=== PATIENT | male | born 1960 | race Caucasian/White ===

== ENCOUNTER 2021-03-22 02:02 | Inpatient (IN) ==
[2021-03-22] MEDS ORDERED: Naloxone 0.4 MG/ML INJ IVP PRN ×2 (06:31→15:37)
[2021-03-22] MEDS ORDERED: Ondansetron 4 MG/2 ML VIAL IVP PRN ×2 (06:31→15:37)
[2021-03-22] MEDS ORDERED: *HR* LORazepam 2 MG/ML VIAL IVP PRN ×4 (06:35→15:37)
[2021-03-22] MEDS ORDERED: 0.9 % Sodium Chloride 1,000 ML IVC SCH (06:45)
[2021-03-22 07:12] LABS: Basophils % 0.1 %; Eosinophils % 0.1 %; Hematocrit 30.2 % (37.5-50.1); Hemoglobin 10.2 g/dL (12.9-16.9); Immature Granulocytes % 0.4 % (0-4); Lymphocytes # 1.3 K/mcL (0.6-4.6); Lymphocytes % 16.4 %; Mean Corpuscular HGB Conc 33.8 g/dL (31.6-35.5); Mean Corpuscular Hemoglobin 32.5 pg (28.0-33.3); Mean Corpuscular Volume 96.2 fL (83.0-100.0); Mean Platelet Volume 9.1 fL (9.4-12.4); Monocytes # 0.7 K/mcL (0.0-1.3); Monocytes % 8.4 %; Neutrophils # 5.9 K/mcL (1.6-8.9); Platelet Count 190 K/mcL (140-400); Red Blood Count 3.14 M/mcL (4.19-5.50); Red Cell Distribution Width 13.2 % (11.5-14.5); Segmented Neutrophils % 74.6 %; White Blood Count 7.9 K/mcL (4.3-11.1)
[2021-03-22 07:19] LABS: INR 1.1; Prothrombin Time 12.7 Seconds (9.4-12.1)
[2021-03-22 07:39] LABS: BUN/Creatinine Ratio 23 (6-26); Blood Urea Nitrogen 12 mg/dL (8-23); Calcium 7.7 mg/dL (8.6-10.3); Carbon Dioxide 21 mEq/L (23-29); Chloride 103 mEq/L (98-107); Ethanol 144 mg/dL (Less than 10); Glucose 96 mg/dL (70-105); Magnesium 1.6 mg/dL (1.6-2.6); Osmolality,Calculated 272 (280-300); Potassium 3.8 mEq/L (3.5-5.1); Sodium 131 mEq/L (136-145); eGFR For African Americans > 60 (> 60); eGFR For Non-African Americans > 60 (> 60)
[2021-03-22 10:01] LABS: Thyroid Stimulating Hormone 1.168 mcIU/mL (0.340-5.600)
[2021-03-22 10:28] LABS: Bilirubin,Urine Negative (Negative); Blood,Urine Negative (Negative); Clarity,Urine Clear (Clear); Color,Urine Light-Yellow (Yellow); Glucose,Urine (UA) Normal (Normal); Ketones,Urine Negative (Negative); Leukocyte Esterase,Urine Negative (Negative); Nitrite,Urine Negative (Negative); Protein,Urine Negative (Neg-Trace); Specific Gravity,Urine 1.008 (1.010-1.025); Urobilinogen,Urine Normal (Normal)
[2021-03-22] MEDS ORDERED: *HR* Midazolam HCl 2 MG/2 ML VIAL ONE (10:42)
[2021-03-22] MEDS ORDERED: *HR* Propofol 200 MG/20 ML VIAL IVP ONE (10:43)
[2021-03-22] MEDS ORDERED: Lidocaine -MPF 2% 5 ML VIAL ONE (10:43)
[2021-03-22] MEDS ORDERED: *HR* HYDROmorphone PF 0.5 MG/0.5 ML SYRINGE IVP PRN (10:45)
[2021-03-22] MEDS ORDERED: *HR* FentaNYL (PF) 100 MCG/2 ML VIAL IVP PRN (10:45)
[2021-03-22] MEDS ORDERED: Dexmedetomidine HCl 400 MCG/100 ML MLS IVC ONE (12:27)
[2021-03-22] MEDS ORDERED: Ipratropium/Albuterol Neb 3 ML IH ONE (12:34)
[2021-03-22] MEDS ORDERED: *HR* OxyCODONE Immed Rel 5 MG TABLET PO ONE (12:34)
[2021-03-22] MEDS ORDERED: TOTAL JOINT MIXTURE (100ML) INTRAART ONE (13:00)
[2021-03-22] MEDS ORDERED: Tranexamic Acid 1,000 MG/10 ML VIAL ONE (13:23)
[2021-03-22] MEDS ORDERED: *HR* HYDROMORPHONE 2 MG/ML VIAL ONE (13:25)
[2021-03-22] MEDS: 0.9 % Sodium Chloride 1,000 ML IVC SCH (16:08)
[2021-03-22] MEDS: carvediloL 6.25 MG TABLET PO SCH (17:08)
[2021-03-22] MEDS: Thiamine (B-1) 100 MG, Folic Acid 1 MG, MVI, adult with vitamin K 10 ML in 0.9 % Sodi... IVPB SCH (17:25)
[2021-03-22] MEDS ORDERED: Thiamine (B-1) 100 MG, Folic Acid 1 MG, MVI, adult with vitamin K 10 ML in 0.9 % Sodi... IVPB SCH (18:00)
[2021-03-22] MEDS: traZODone 50 MG TABLET PO PRN (20:25)
[2021-03-22] MEDS: CeFAZolin 2 GM/120 ML BAG IVPB SCH (22:09)
[2021-03-23] MEDS: 0.9 % Sodium Chloride 1,000 ML IVC SCH (03:08)
[2021-03-23] MEDS: CeFAZolin 2 GM/120 ML BAG IVPB SCH (04:22)
[2021-03-23 05:16] LABS: Basophils % 0.1 %; Hematocrit 21.6 % (37.5-50.1); Immature Granulocytes % 0.3 % (0-4); Lymphocytes # 1.3 K/mcL (0.6-4.6); Mean Corpuscular HGB Conc 33.8 g/dL (31.6-35.5); Mean Corpuscular Hemoglobin 34.1 pg (28.0-33.3); Mean Corpuscular Volume 100.9 fL (83.0-100.0); Mean Platelet Volume 9.4 fL (9.4-12.4); Monocytes # 0.8 K/mcL (0.0-1.3); Monocytes % 7.7 %; Neutrophils # 8.6 K/mcL (1.6-8.9); Platelet Count 134 K/mcL (140-400); Red Blood Count 2.14 M/mcL (4.19-5.50); Red Cell Distribution Width 13.4 % (11.5-14.5); Segmented Neutrophils % 79.9 %; White Blood Count 10.8 K/mcL (4.3-11.1)
[2021-03-23 05:17] LABS: Hemoglobin 7.3 g/dL (12.9-16.9)
[2021-03-23 05:31] LABS: BUN/Creatinine Ratio 20 (6-26); Blood Urea Nitrogen 11 mg/dL (8-23); Calcium 7.7 mg/dL (8.6-10.3); Carbon Dioxide 21 mEq/L (23-29); Chloride 104 mEq/L (98-107); Glucose 113 mg/dL (70-105); Osmolality,Calculated 266 (280-300); Potassium 3.6 mEq/L (3.5-5.1); Sodium 128 mEq/L (136-145); eGFR For African Americans > 60 (> 60); eGFR For Non-African Americans > 60 (> 60)
[2021-03-23] MEDS: *HR* OxyCODONE Immed Rel 5 MG TABLET PO PRN ×2 (10:02→17:35)
[2021-03-23] MEDS: carvediloL 6.25 MG TABLET PO SCH ×2 (10:03→17:36)
[2021-03-23] MEDS: amLODIPine 5 MG TABLET PO SCH (10:04)
[2021-03-23 10:40] LABS: Hematocrit 21.6 % (37.5-50.1); Hemoglobin 7.2 g/dL (12.9-16.9)
[2021-03-23] MEDS: *HR* Enoxaparin 30 MG/0.3 ML SYRINGE SQ SCH (17:36)
[2021-03-23] MEDS: Thiamine (B-1) 100 MG, Folic Acid 1 MG, MVI, adult with vitamin K 10 ML in 0.9 % Sodi... IVPB SCH (18:08)
[2021-03-23] MEDS: traZODone 50 MG TABLET PO PRN (21:47)
[2021-03-24] MEDS: Acetaminophen 325 MG TABLET PO PRN ×3 (01:42→17:26)
[2021-03-24 04:22] LABS: Basophils % 0.2 %; Eosinophils % 0.5 %; Hematocrit 18.9 % (37.5-50.1); Hemoglobin 6.2 g/dL (12.9-16.9); Immature Granulocytes % 0.5 % (0-4); Lymphocytes # 1.5 K/mcL (0.6-4.6); Lymphocytes % 23.5 %; Mean Corpuscular HGB Conc 32.8 g/dL (31.6-35.5); Mean Corpuscular Hemoglobin 32.6 pg (28.0-33.3); Mean Corpuscular Volume 99.5 fL (83.0-100.0); Mean Platelet Volume 10.2 fL (9.4-12.4); Monocytes # 0.5 K/mcL (0.0-1.3); Monocytes % 8.3 %; Neutrophils # 4.4 K/mcL (1.6-8.9); Platelet Count 129 K/mcL (140-400); Red Cell Distribution Width 13.2 % (11.5-14.5); White Blood Count 6.5 K/mcL (4.3-11.1)
[2021-03-24 04:23] LABS: BUN/Creatinine Ratio 11 (6-26); Blood Urea Nitrogen 5 mg/dL (8-23); Calcium 7.9 mg/dL (8.6-10.3); Carbon Dioxide 25 mEq/L (23-29); Chloride 99 mEq/L (98-107); Glucose 97 mg/dL (70-105); Osmolality,Calculated 267 (280-300); Potassium 3.1 mEq/L (3.5-5.1); Sodium 130 mEq/L (136-145); eGFR For African Americans > 60 (> 60); eGFR For Non-African Americans > 60 (> 60)
[2021-03-24] MEDS: *HR* Enoxaparin 30 MG/0.3 ML SYRINGE SQ SCH (05:15)
[2021-03-24] MEDS: *HR* OxyCODONE Immed Rel 5 MG TABLET PO PRN ×2 (05:19→16:05)
[2021-03-24] MEDS ORDERED: 0.9 % Sodium Chloride 250 ML ONE (08:52)
[2021-03-24] MEDS: carvediloL 6.25 MG TABLET PO SCH ×2 (08:53→16:05)
[2021-03-24] MEDS: Thiamine (B-1) 100 MG, Folic Acid 1 MG, MVI, adult with vitamin K 10 ML in 0.9 % Sodi... IVPB SCH (16:06)
[2021-03-24 19:26] LABS: Hematocrit 22.1 % (37.5-50.1); Hemoglobin 7.5 g/dL (12.9-16.9); Mean Corpuscular HGB Conc 33.9 g/dL (31.6-35.5); Mean Corpuscular Hemoglobin 32.5 pg (28.0-33.3); Mean Corpuscular Volume 95.7 fL (83.0-100.0); Mean Platelet Volume 9.5 fL (9.4-12.4); Platelet Count 132 K/mcL (140-400); Red Blood Count 2.31 M/mcL (4.19-5.50); Red Cell Distribution Width 13.4 % (11.5-14.5); White Blood Count 8.5 K/mcL (4.3-11.1)
[2021-03-24] MEDS: traZODone 50 MG TABLET PO PRN (19:59)
[2021-03-25 05:04] LABS: Hematocrit 20.8 % (37.5-50.1); Mean Corpuscular HGB Conc 33.7 g/dL (31.6-35.5); Mean Corpuscular Hemoglobin 32.4 pg (28.0-33.3); Mean Corpuscular Volume 96.3 fL (83.0-100.0); Platelet Count 135 K/mcL (140-400); Red Blood Count 2.16 M/mcL (4.19-5.50); Red Cell Distribution Width 13.4 % (11.5-14.5); White Blood Count 7.8 K/mcL (4.3-11.1)
[2021-03-25 05:21] LABS: BUN/Creatinine Ratio 14 (6-26); Blood Urea Nitrogen 6 mg/dL (8-23); Carbon Dioxide 25 mEq/L (23-29); Chloride 97 mEq/L (98-107); Glucose 95 mg/dL (70-105); Osmolality,Calculated 263 (280-300); Potassium 3.3 mEq/L (3.5-5.1); Sodium 128 mEq/L (136-145); eGFR For African Americans > 60 (> 60); eGFR For Non-African Americans > 60 (> 60)
[2021-03-25] MEDS: *HR* Enoxaparin 40 MG/0.4 ML SYRINGE SQ SCH (05:45)
[2021-03-25] MEDS: *HR* OxyCODONE Immed Rel 5 MG TABLET PO PRN (05:48)
[2021-03-25] MEDS: carvediloL 6.25 MG TABLET PO SCH ×2 (08:52→17:42)
[2021-03-25] MEDS ORDERED: 0.9 % Sodium Chloride 250 ML IVC SCH (10:30)
[2021-03-25] MEDS ORDERED: 0.9 % Sodium Chloride 250 ML ONE (11:06)
[2021-03-25] MEDS: Acetaminophen 325 MG TABLET PO PRN (13:04)
[2021-03-25 19:09] LABS: Hematocrit 24.5 % (37.5-50.1); Hemoglobin 8.4 g/dL (12.9-16.9)
[2021-03-26 04:44] LABS: Hematocrit 23.3 % (37.5-50.1); Hemoglobin 7.9 g/dL (12.9-16.9); Mean Corpuscular HGB Conc 33.9 g/dL (31.6-35.5); Mean Corpuscular Hemoglobin 31.9 pg (28.0-33.3); Mean Platelet Volume 9.7 fL (9.4-12.4); Platelet Count 170 K/mcL (140-400); Red Blood Count 2.48 M/mcL (4.19-5.50); Red Cell Distribution Width 13.5 % (11.5-14.5); White Blood Count 8.1 K/mcL (4.3-11.1)
[2021-03-26 05:01] LABS: BUN/Creatinine Ratio 23 (6-26); Blood Urea Nitrogen 10 mg/dL (8-23); Calcium 8.2 mg/dL (8.6-10.3); Carbon Dioxide 29 mEq/L (23-29); Chloride 94 mEq/L (98-107); Glucose 100 mg/dL (70-105); Osmolality,Calculated 271 (280-300); Potassium 3.8 mEq/L (3.5-5.1); Sodium 131 mEq/L (136-145); eGFR For African Americans > 60 (> 60); eGFR For Non-African Americans > 60 (> 60)
[2021-03-26] MEDS: *HR* Enoxaparin 40 MG/0.4 ML SYRINGE SQ SCH (06:31)
[2021-03-26] MEDS ORDERED: Azithromycin 250 MG TABLET PO SCH (07:30)
[2021-03-26 07:35] LABS: Adenovirus Not Detected (Not Detect); Bordetella Pertussis Not Detected (Not Detect); Chlamydophila pneumoniae Not Detected (Not Detect); Coronavirus 229E Not Detected (Not Detect); Coronavirus HKU1 Not Detected (Not Detect); Coronavirus NL63 Not Detected (Not Detect); Coronavirus OC43 Not Detected (Not Detect); Human Metapneumovirus Not Detected (Not Detect); Human Rhinovirus/Enterovirus Not Detected (Not Detect); Influenza A Subtype 2009 H1 Not Detected (Not Detect); Influenza B Not Detected (Not Detect); Mycoplasma pneumoniae Not Detected (Not Detect); Parainfluenza Virus 1 Not Detected (Not Detect); Parainfluenza Virus 2 Not Detected (Not Detect); Parainfluenza Virus 3 Not Detected (Not Detect); Parainfluenza Virus 4 Not Detected (Not Detect); Respiratory Syncytial Virus Not Detected (Not Detect); SARS-CoV-2 Not Detected (Not Detect)
[2021-03-26] MEDS: carvediloL 6.25 MG TABLET PO SCH ×2 (07:54→17:12)
[2021-03-26] MEDS: amLODIPine 5 MG TABLET PO SCH (07:55)
[2021-03-26] MEDS: cefTRIAXone 1,000 MG in Water for inj. (sterile) 10 ML IVP SCH (11:08)
[2021-03-26] MEDS: Azithromycin 500 MG in D5% in Water 250 ML IVPB SCH (11:09)
[2021-03-26] MEDS: Ipratropium/Albuterol Neb 3 ML IH SCH ×3 (15:23→20:17)
[2021-03-26 15:40] LABS: Bilirubin,Urine Negative (Negative); Blood,Urine Negative (Negative); Clarity,Urine Clear (Clear); Color,Urine Light-Yellow (Yellow); Glucose,Urine (UA) Normal (Normal); Ketones,Urine Negative (Negative); Leukocyte Esterase,Urine Negative (Negative); Nitrite,Urine Negative (Negative); Protein,Urine Negative (Neg-Trace); Specific Gravity,Urine 1.009 (1.010-1.025); Urobilinogen,Urine Normal (Normal)
[2021-03-26 16:12] LABS: Hematocrit 23.8 % (37.5-50.1)
[2021-03-26] MEDS: Pantoprazole 40 MG VIAL IVP SCH (17:12)
[2021-03-26 23:15] LABS: Hematocrit 22.8 % (37.5-50.1); Hemoglobin 7.8 g/dL (12.9-16.9)
[2021-03-27] MEDS: Ipratropium/Albuterol Neb 3 ML IH SCH ×4 (04:07→21:10)
[2021-03-27 04:48] LABS: Hematocrit 21.6 % (37.5-50.1); Hemoglobin 7.3 g/dL (12.9-16.9); Mean Corpuscular HGB Conc 33.8 g/dL (31.6-35.5); Mean Corpuscular Hemoglobin 31.5 pg (28.0-33.3); Mean Corpuscular Volume 93.1 fL (83.0-100.0); Platelet Count 179 K/mcL (140-400); Red Blood Count 2.32 M/mcL (4.19-5.50); Red Cell Distribution Width 13.1 % (11.5-14.5); White Blood Count 7.4 K/mcL (4.3-11.1)
[2021-03-27 05:05] LABS: BUN/Creatinine Ratio 11 (6-26); Blood Urea Nitrogen 5 mg/dL (8-23); Calcium 8.3 mg/dL (8.6-10.3); Carbon Dioxide 30 mEq/L (23-29); Chloride 91 mEq/L (98-107); Glucose 100 mg/dL (70-105); Osmolality,Calculated 261 (280-300); Potassium 3.1 mEq/L (3.5-5.1); Sodium 127 mEq/L (136-145); eGFR For African Americans > 60 (> 60); eGFR For Non-African Americans > 60 (> 60)
[2021-03-27] MEDS: Pantoprazole 40 MG VIAL IVP SCH (06:01)
[2021-03-27] MEDS ORDERED: Potassium Chloride 20 MEQ, Lidocaine 1% 2 ML in 0.9 % Sodium Chloride 250 ML IVPB ONE (07:12)
[2021-03-27] MEDS: amLODIPine 5 MG TABLET PO SCH (07:42)
[2021-03-27] MEDS: carvediloL 6.25 MG TABLET PO SCH ×2 (07:42→17:17)
[2021-03-27] MEDS: cefTRIAXone 1,000 MG in Water for inj. (sterile) 10 ML IVP SCH (09:50)
[2021-03-27] MEDS: Azithromycin 500 MG in D5% in Water 250 ML IVPB SCH (09:57)
[2021-03-27] MEDS ORDERED: Lidocaine -MPF 2% 5 ML VIAL ONE ×2 (13:54→14:08)
[2021-03-27] MEDS ORDERED: *HR* Propofol 200 MG/20 ML VIAL IVP ONE ×2 (13:54→14:26)
[2021-03-27] MEDS: Acetaminophen 325 MG TABLET PO PRN (15:22)
[2021-03-28] MEDS: Ipratropium/Albuterol Neb 3 ML IH SCH ×4 (03:49→23:16)
[2021-03-28 04:55] LABS: Basophils % 0.2 %; Eosinophils # 0.1 K/mcL (0.0-0.6); Eosinophils % 1.6 %; Hematocrit 22.8 % (37.5-50.1); Hemoglobin 7.9 g/dL (12.9-16.9); Immature Granulocytes % 0.3 % (0-4); Lymphocytes % 16.9 %; Mean Corpuscular HGB Conc 34.6 g/dL (31.6-35.5); Mean Corpuscular Hemoglobin 32.5 pg (28.0-33.3); Mean Corpuscular Volume 93.8 fL (83.0-100.0); Monocytes # 0.6 K/mcL (0.0-1.3); Monocytes % 10.9 %; Neutrophils # 4.1 K/mcL (1.6-8.9); Platelet Count 232 K/mcL (140-400); Red Blood Count 2.43 M/mcL (4.19-5.50); Segmented Neutrophils % 70.1 %; White Blood Count 5.8 K/mcL (4.3-11.1)
[2021-03-28 05:13] LABS: BUN/Creatinine Ratio 9 (6-26); Blood Urea Nitrogen 4 mg/dL (8-23); Calcium 8.4 mg/dL (8.6-10.3); Carbon Dioxide 26 mEq/L (23-29); Chloride 90 mEq/L (98-107); Glucose 143 mg/dL (70-105); Osmolality,Calculated 257 (280-300); Sodium 124 mEq/L (136-145); eGFR For African Americans > 60 (> 60); eGFR For Non-African Americans > 60 (> 60)
[2021-03-28] MEDS: *HR* Enoxaparin 40 MG/0.4 ML SYRINGE SQ SCH (06:04)
[2021-03-28] MEDS: carvediloL 6.25 MG TABLET PO SCH ×2 (08:03→17:35)
[2021-03-28] MEDS: amLODIPine 5 MG TABLET PO SCH (08:04)
[2021-03-28] MEDS: cefTRIAXone 1,000 MG in Water for inj. (sterile) 10 ML IVP SCH (10:00)
[2021-03-28] MEDS: Azithromycin 500 MG in D5% in Water 250 ML IVPB SCH (10:01)
[2021-03-28] MEDS: *HR* OxyCODONE Immed Rel 5 MG TABLET PO PRN ×2 (14:02→20:09)
[2021-03-28] MEDS: Acetaminophen 325 MG TABLET PO PRN (18:45)
[2021-03-28 19:05] LABS: Albumin 2.9 g/dL (3.5-5.7); Bilirubin,Direct 0.1 mg/dL (0.0-0.2); Bilirubin,Indirect 0.4 mg/dL (0.0-1.0); Bilirubin,Total 0.5 mg/dL (0.3-1.0); Globulin 2.9 g/dL (2.4-3.5); Total Protein 5.8 g/dL (6.4-8.9)
[2021-03-28] MEDS: traZODone 50 MG TABLET PO PRN (20:09)
[2021-03-28] MEDS: Cefdinir 300 MG CAPSULE PO SCH (20:09)
[2021-03-29] MEDS: Ipratropium/Albuterol Neb 3 ML IH SCH ×3 (04:37→17:11)
[2021-03-29 05:08] LABS: Basophils % 0.2 %; Eosinophils # 0.1 K/mcL (0.0-0.6); Eosinophils % 1.5 %; Hematocrit 22.6 % (37.5-50.1); Hemoglobin 7.4 g/dL (12.9-16.9); Immature Granulocytes % 0.3 % (0-4); Lymphocytes # 0.8 K/mcL (0.6-4.6); Lymphocytes % 14.5 %; Mean Corpuscular HGB Conc 32.7 g/dL (31.6-35.5); Mean Corpuscular Hemoglobin 30.7 pg (28.0-33.3); Mean Corpuscular Volume 93.8 fL (83.0-100.0); Mean Platelet Volume 9.2 fL (9.4-12.4); Monocytes % 16.4 %; Neutrophils # 3.9 K/mcL (1.6-8.9); Platelet Count 259 K/mcL (140-400); Red Blood Count 2.41 M/mcL (4.19-5.50); Red Cell Distribution Width 12.6 % (11.5-14.5); Segmented Neutrophils % 67.1 %; White Blood Count 5.8 K/mcL (4.3-11.1)
[2021-03-29 05:22] LABS: BUN/Creatinine Ratio 6 (6-26); Blood Urea Nitrogen 3 mg/dL (8-23); Calcium 8.3 mg/dL (8.6-10.3); Carbon Dioxide 26 mEq/L (23-29); Chloride 94 mEq/L (98-107); Glucose 107 mg/dL (70-105); Osmolality,Calculated 261 (280-300); Potassium 2.9 mEq/L (3.5-5.1); Sodium 127 mEq/L (136-145); eGFR For African Americans > 60 (> 60); eGFR For Non-African Americans > 60 (> 60)
[2021-03-29] MEDS: *HR* Enoxaparin 40 MG/0.4 ML SYRINGE SQ SCH (06:27)
[2021-03-29] MEDS: *HR* OxyCODONE Immed Rel 5 MG TABLET PO PRN (06:35)
[2021-03-29 07:16] VITALS: TEMP 98.5
[2021-03-29] MEDS: carvediloL 6.25 MG TABLET PO SCH ×2 (08:33→16:18)
[2021-03-29] MEDS: Cefdinir 300 MG CAPSULE PO SCH (08:33)
[2021-03-29] MEDS: amLODIPine 5 MG TABLET PO SCH (08:33)
[2021-03-29] MEDS ORDERED: Azithromycin 250 MG TABLET PO SCH (09:00)
[2021-03-29 11:47] VITALS: BP 120/73; PULSE 85; O2SAT 99
== END 2021-03-29 17:12 | disposition home health service (06) | DRG 480 ==
LOC: 4WAOSI → SUATTDRO 06:03
PROVIDERS: ADMIT Internal Medicine; ATTEND Internal Medicine
PROC: ENDOEBX (2021-03-27 16:00)